=== PATIENT | male | born 1990 | race African-American/Black ===

== ENCOUNTER 2016-06-06 11:22 | Emergency (ER) | payer SELFPAY ==
[~2016-06-06] VITALS: Ht 175.3 cm; Wt 80.0 kg
[~2016-06-06 11:22] MED LIST: IBUP800T23 PO; Z.0.NO CURRENT MEDS
[2016-06-06 11:24] VITALS: BP 135/81; PULSE 75; RESP 12; TEMP 97.9; O2SAT 100
[2016-06-06] MEDS ORDERED: SODIUM CHLORIDE 0.9% FLUSH 5 ML FLUSH IVF PRN (12:45)
--- NOTE | 2016-06-06 12:47 | PD ---
HPI Chief Complaint: GI Complaint Time Seen by Provider: 12:43 Travel History International Travel<30 days: No Contact w/Intl Traveler<30days: No Traveled to known affect area: No History of Present Illness HPI Patient is a 25-year-old male presenting to the emergency department for evaluation of sore throat cough, fevers which are subjective, vomiting, abdominal pain. Patient states his pain is more so in the epigastric region, he rates it as 7 out of 10 and describes as crampy. Patient states he has not eaten anything yesterday or today. He vomited last night as well as this morning. Additionally he reports generalized body aches. Patient has not taken any ibuprofen, Tylenol, naproxen this morning. He states his past medical history is significant for asthma. He was recently released from group home in April. [facility] Past Medical History Asthma: Yes Diminished Hearing: No Immunizations Current: Yes Past Surgical History Surgical History: No Previous Surgery Social History Alcohol Use: No Tobacco Use: Yes (04/03 PPD) Substance Use: No Allergies-Medications (Allergen,Severity, Reaction): Coded Allergies: Bees (Verified Allergy, Severe, 11/15/12) Reported Meds & Prescriptions Reported Meds & Active Scripts Active Amoxicillin 875 Mg Tab 875 Mg PO BID 10 Days Zofran Odt (Ondansetron Odt) 4 Mg Tab 4 Mg SL Q6HR PRN Review of Systems Except as stated in HPI: all other systems reviewed are Neg General / Constitutional: Positive: Fever (subjective), Chills HENT: Positive: Sore Throat Respiratory: Positive: Cough, No: Wheezing Gastrointestinal: Positive: Nausea, Vomiting, Abdominal Pain Genitourinary: No: Dysuria Musculoskeletal: Positive: Myalgias, Arthralgias Neurologic: No: Focal Abnormalities Physical Exam Narrative GENERAL: Developed, well nourished, female. Resting comfortably in no acute distress. SKIN: Warm and dry. HEAD: Atraumatic. Normocephalic. EYES: Pupils equal and round. No scleral icterus. No injection or drainage. ENT: No nasal bleeding or discharge. Mucous membranes pink and moist. NECK: Trachea midline. No JVD. CARDIOVASCULAR: Regular rate and rhythm. No murmur appreciated. RESPIRATORY: No accessory muscle use. Clear to auscultation. Breath sounds equal bilaterally. GASTROINTESTINAL: Abdomen soft, mildly tender to palpation in epigastric region , nondistended. Hepatic and splenic margins not palpable. Has a bowel sounds, no rebound, slight guarding. MUSCULOSKELETAL: No obvious deformities. No clubbing. No cyanosis. No edema. NEUROLOGICAL: Awake and alert. No obvious cranial nerve deficits. Motor grossly within normal limits. Normal speech. PSYCHIATRIC: Appropriate mood and affect; insight and judgment normal. Data Data Last Documented VS Vital Signs Date Time Temp Pulse Resp B/P Pulse Ox O2 Delivery O2 Flow Rate FiO2 06/06/16 17:47 15 06/06/16 17:00 69 128/73 100 06/06/16 11:24 97.9 Orders Complete Blood Count With Diff (06/06/16 12:41) Comprehensive Metabolic Panel (06/06/16 12:41) Urinalysis - C+S If Indicated (06/06/16 12:41) Lipase (06/06/16 12:41) Sodium Chloride 0.9% Flush (Ns Flush) (06/06/16 12:45) Abdomen, Kub Only (06/06/16 12:41) Group A Rapid Strep Screen (06/06/16 12:41) Influenzae A/B Antigen (06/06/16 12:43) Ondansetron Inj (Zofran Inj) (06/06/16 17:00) Pantoprazole Inj (Protonix Inj) (06/06/16 17:00) Sodium Chlor 0.9% 1000 Ml Inj (Ns 1000 M (06/06/16 16:52) Al-Mag Hy-Si 40-40-4 Mg/Ml Liq (Mag-Al P (06/06/16 17:00) Lidocaine 2% Viscous (Xylocaine 2% Visco (06/06/16 17:00) Ketorolac Inj (Toradol Inj) (06/06/16 17:00) Labs Laboratory Tests Test 06/06/16 06/06/16 06/06/16 12:45 13:00 16:53 White Blood Count 11.5 TH/MM3 Red Blood Count 5.00 MIL/MM3 Hemoglobin 15.5 GM/DL Hematocrit 45.4 % Mean Corpuscular Volume 90.9 FL Mean Corpuscular Hemoglobin 31.0 PG Mean Corpuscular Hemoglobin 34.1 % Concent Red Cell Distribution Width 14.5 % Platelet Count 182 TH/MM3 Mean Platelet Volume 9.2 FL Neutrophils (%) (Auto) 81.3 % Lymphocytes (%) (Auto) 8.6 % Monocytes (%) (Auto) 8.6 % Eosinophils (%) (Auto) 0.9 % Basophils (%) (Auto) 0.6 % Neutrophils # (Auto) 9.4 TH/MM3 Lymphocytes # (Auto) 1.0 TH/MM3 Monocytes # (Auto) 1.0 TH/MM3 Eosinophils # (Auto) 0.1 TH/MM3 Basophils # (Auto) 0.1 TH/MM3 CBC Comment DIFF FINAL Differential Comment Sodium Level 139 MEQ/L Potassium Level 4.7 MEQ/L Chloride Level 102 MEQ/L Carbon Dioxide Level 26.8 MEQ/L Anion Gap 10 MEQ/L Blood Urea Nitrogen 10 MG/DL Creatinine 1.15 MG/DL Estimat Glomerular Filtration 95 ML/MIN Rate Random Glucose 73 MG/DL Calcium Level 9.7 MG/DL Total Bilirubin 0.4 MG/DL Aspartate Amino Transf 28 U/L (AST/SGOT) Alanine Aminotransferase 43 U/L (ALT/SGPT) Alkaline Phosphatase 90 U/L Total Protein 8.6 GM/DL Albumin 4.4 GM/DL Lipase 65 U/L Urine Color YELLOW Urine Turbidity CLEAR Urine pH 6.0 Urine Specific [place] 1.014 Urine Protein NEG mg/dL Urine Glucose (UA) NEG mg/dL Urine Ketones NEG mg/dL Urine Occult Blood NEG Urine Nitrite NEG Urine Bilirubin NEG Urine Urobilinogen LESS THAN 2.0 MG/DL Urine Leukocyte Esterase NEG Urine RBC 1 /hpf Urine WBC LESS THAN 1 /hpf Urine Mucus FEW /lpf Microscopic Urinalysis Comment CULT NOT INDICATED MDM Medical Decision Making Medical Screen Exam Complete: Yes Emergency Medical Condition: Yes Interpretation(s) Vital Signs Date Time Temp Pulse Resp B/P Pulse Ox O2 Delivery O2 Flow Rate FiO2 06/06/16 11:24 97.9 75 12 135/81 100 Differential Diagnosis Influenza versus strep versus gastroenteritis versus foodborne illness versus obstruction versus other Narrative Course Patient is a 25-year-old male who is well-appearing presenting to the emergency department with complaint of sore throat, cough, nausea vomiting, decreased oral intake for the last 2 days. He reports subjective fevers but is currently afebrile. He denies any posttussive emesis, but has vomited twice. Labs and imaging ordered and pending. Workup initiated in triage, care patient will be transferred to provider when a medical bed is available. Scripts Amoxicillin 875 Mg [id number] Mg PO BID 10 Days Ref 0 Prov:Ivania Rodgers DO 06/06/16 Ondansetron Odt (Zofran Odt)4 Mg Tab4 Mg SL Q6HR PRN (Nausea/Vomiting) #30 TAB Ref 0 Prov:Ivania Rodgers DO 06/06/16 Sandra Whiteside Jun 06, 2016 12:47
--- NOTE | 2016-06-06 13:07 | RADRPT ---
EXAM DATE/TIME: 06/06/2016 13:03 [place] COMPARISON: No previous studies available for comparison. INDICATIONS : Patient has been spitting up blood and had abdomen pain for two days. MEDICAL HISTORY : None. SURGICAL HISTORY : None. ENCOUNTER: Initial ACUITY: 2 days PAIN SCORE: 8/10 LOCATION: Abdomen. FINDINGS: Single frontal supine view of the abdomen demonstrates air within small and large bowel in a nonobstr uctive pattern. No organomegaly or abnormal calcifications are seen. No abnormal mass effect is appre ciated. The visualized bones demonstrates no abnormality. CONCLUSION: No acute abdominal abnormality is identified. Nathaniel Schneider MD on June 06, 2016 at 13:05 Board Certified Radiologist. This report was verified electronically.
[2016-06-06 13:14] LABS: AUTOMATED NEUTROPHIL # 9.4 TH/MM3 (1.8-7.7); BASOPHIL # 0.1 TH/MM3 (0-0.2); BASOPHIL % 0.6 % (0.0-2.0); EOSINOPHIL # 0.1 TH/MM3 (0-0.4); EOSINOPHIL % 0.9 % (0.0-4.0); HEMATOCRIT 45.4 % (39.0-51.0); HEMO FLAGS DIFF FINAL; LYMPH % 8.6 % (9.0-44.0); MEAN CELL VOLUME 90.9 FL (80.0-100.0); MEAN CORPUSCULAR HGB CONC 34.1 % (32.0-36.0); MONO % 8.6 % (0.0-8.0); NEUT % 81.3 % (16.0-70.0); PLATELET COUNT 182 TH/MM3 (150-450); RED CELL DISTRIBUTION WIDTH 14.5 % (11.6-17.2); WHITE BLOOD COUNT 11.5 TH/MM3 (4.0-11.0)
[2016-06-06 13:39] LABS: ALKALINE PHOSPHATASE 90 U/L (45-117); TOTAL BILIRUBIN ADULT 0.4 MG/DL (0.2-1.0)
[2016-06-06 13:40] LABS: ALT (GPT) 43 U/L (12-78); ANION GAP 10 MEQ/L (5-15); AST (GOT) 28 U/L (15-37); BICARBONATE 26.8 MEQ/L (21.0-32.0); BLOOD UREA NITROGEN 10 MG/DL (7-18); CHLORIDE 102 MEQ/L (98-107); GLOMERULAR FILTRATION RATE 95 ML/MIN (>89); POTASSIUM 4.7 MEQ/L (3.5-5.1); SODIUM (NA) 139 MEQ/L (136-145)
[2016-06-06] MEDS ORDERED: SODIUM CHLOR 0.9% 1000 ML INJ 1,000 ML IV SCH (16:52)
[2016-06-06] MEDS ORDERED: ZOFR4TAB3 SL ×2 (16:54→17:49)
[2016-06-06] MEDS ORDERED: AMOX875T PO ×2 (16:54→17:49)
[2016-06-06 17:00] VITALS: BP 128/73; PULSE 69; RESP 15; O2SAT 100
[2016-06-06] MEDS ORDERED: ONDANSETRON HCL 4 MG/2 ML VIAL IVP ONE (17:00)
[2016-06-06] MEDS ORDERED: LIDOCAINE VISCOUS 2% SOLN 15 ML UDC PO ONE (17:00)
[2016-06-06] MEDS ORDERED: KETOROLAC TROMETHAMINE 30 MG/ML (IVP) VIAL IV PUSH ONE (17:00)
[2016-06-06] MEDS ORDERED: PANTOPRAZOLE SODIUM 40 MG VIAL IVP ONE (17:00)
[2016-06-06] MEDS ORDERED: ALUMINUM/MAGNESIUM/SIMETH 30 ML CUP PO ONE (17:00)
--- NOTE | 2016-06-06 17:01 | PD ---
HPI Chief Complaint: GI Complaint Time Seen by Provider: 16:48 Travel History International Travel<30 days: No Contact w/Intl Traveler<30days: No Traveled to known affect area: No History of Present Illness HPI 25-year-old male presents for evaluation of sore throat. Symptoms started 2 days ago. Associated with myalgias, nausea, vomiting, epigastric discomfort. Pain is worsened swallowing. No alleviating factors. He has not checked his temperature at home. Denies dysuria, flank pain, rash, congestion, shortness of breath, sick contacts. No significant past medical history. No other complaints. [facility] Past Medical History Asthma: Yes Diminished Hearing: No Immunizations Current: Yes Past Surgical History Surgical History: No Previous Surgery Social History Alcohol Use: No Tobacco Use: Yes (1/2 PPD) Substance Use: No Allergies-Medications (Allergen,Severity, Reaction): Coded Allergies: Bees (Verified Allergy, Severe, 11/15/12) Reported Meds & Prescriptions Reported Meds & Active Scripts Active No Active Prescriptions or Reported Medications Review of Systems Except as stated in HPI: all other systems reviewed are Neg Physical Exam Narrative GENERAL: Well-developed well-nourished male in no acute distress SKIN: Warm and dry. HEAD: Atraumatic. Normocephalic. EYES: Pupils equal and round. No scleral icterus. No injection or drainage. ENT: No nasal bleeding or discharge. Mucous membranes pink and moist. Oropharyngeal erythema is present. No exudate. Uvula midline with no mass effect. NECK: Trachea midline. No JVD. CARDIOVASCULAR: Regular rate and rhythm. No murmur appreciated. RESPIRATORY: No accessory muscle use. Clear to auscultation. Breath sounds equal bilaterally. GASTROINTESTINAL: Abdomen soft, mild epigastric and left upper quadrant tenderness without guarding. MUSCULOSKELETAL: No obvious deformities. No edema. NEUROLOGICAL: Awake and alert. No obvious cranial nerve deficits. Motor grossly within normal limits. Normal speech. PSYCHIATRIC: Appropriate mood and affect; insight and judgment normal. Data Data Last Documented VS Vital Signs Date Time Temp Pulse Resp B/P Pulse Ox O2 Delivery O2 Flow Rate FiO2 06/06/16 17:47 15 06/06/16 17:00 69 128/73 100 06/06/16 11:24 97.9 Orders Complete Blood Count With Diff (06/06/16 12:41) Comprehensive Metabolic Panel (06/06/16 12:41) Urinalysis - C+S If Indicated (06/06/16 12:41) Lipase (06/06/16 12:41) Sodium Chloride 0.9% Flush (Ns Flush) (06/06/16 12:45) Abdomen, Kub Only (06/06/16 12:41) Group A Rapid Strep Screen (06/06/16 12:41) Influenzae A/B Antigen (06/06/16 12:43) Ondansetron Inj (Zofran Inj) (06/06/16 17:00) Pantoprazole Inj (Protonix Inj) (06/06/16 17:00) Sodium Chlor 0.9% 1000 Ml Inj (Ns 1000 M (06/06/16 16:52) Al-Mag Hy-Si 40-40-4 Mg/Ml Liq (Mag-Al P (06/06/16 17:00) Lidocaine 2% Viscous (Xylocaine 2% Visco (06/06/16 17:00) Ketorolac Inj (Toradol Inj) (06/06/16 17:00) Labs Laboratory Tests Test 06/06/16 06/06/16 06/06/16 12:45 13:00 16:53 White Blood Count 11.5 TH/MM3 Red Blood Count 5.00 MIL/MM3 Hemoglobin 15.5 GM/DL Hematocrit 45.4 % Mean Corpuscular Volume 90.9 FL Mean Corpuscular Hemoglobin 31.0 PG Mean Corpuscular Hemoglobin 34.1 % Concent Red Cell Distribution Width 14.5 % Platelet Count 182 TH/MM3 Mean Platelet Volume 9.2 FL Neutrophils (%) (Auto) 81.3 % Lymphocytes (%) (Auto) 8.6 % Monocytes (%) (Auto) 8.6 % Eosinophils (%) (Auto) 0.9 % Basophils (%) (Auto) 0.6 % Neutrophils # (Auto) 9.4 TH/MM3 Lymphocytes # (Auto) 1.0 TH/MM3 Monocytes # (Auto) 1.0 TH/MM3 Eosinophils # (Auto) 0.1 TH/MM3 Basophils # (Auto) 0.1 TH/MM3 CBC Comment DIFF FINAL Differential Comment Sodium Level 139 MEQ/L Potassium Level 4.7 MEQ/L Chloride Level 102 MEQ/L Carbon Dioxide Level 26.8 MEQ/L Anion Gap 10 MEQ/L Blood Urea Nitrogen 10 MG/DL Creatinine 1.15 MG/DL Estimat Glomerular Filtration 95 ML/MIN Rate Random Glucose 73 MG/DL Calcium Level 9.7 MG/DL Total Bilirubin 0.4 MG/DL Aspartate Amino Transf 28 U/L (AST/SGOT) Alanine Aminotransferase 43 U/L (ALT/SGPT) Alkaline Phosphatase 90 U/L Total Protein 8.6 GM/DL Albumin 4.4 GM/DL Lipase 65 U/L Urine Color YELLOW Urine Turbidity CLEAR Urine pH 6.0 Urine Specific [place] 1.014 Urine Protein NEG mg/dL Urine Glucose (UA) NEG mg/dL Urine Ketones NEG mg/dL Urine Occult Blood NEG Urine Nitrite NEG Urine Bilirubin NEG Urine Urobilinogen LESS THAN 2.0 MG/DL Urine Leukocyte Esterase NEG Urine RBC 1 /hpf Urine WBC LESS THAN 1 /hpf Urine Mucus FEW /lpf Microscopic Urinalysis Comment CULT NOT INDICATED MDM Medical Decision Making Medical Screen Exam Complete: Yes Emergency Medical Condition: Yes Medical Record Reviewed: Yes Differential Diagnosis Streptococcal pharyngitis, gastritis, pancreatitis, cholecystitis, dehydration Narrative Course 25-year-old male with sore throat, nausea and vomiting, epigastric pain for 2 days. Rapid strep screen is positive. Other lab work is unremarkable and reassuring. The patient was given IV fluids, Protonix, Magic mouthwash, oral amoxicillin, IV Zofran. He will be discharged with prescriptions for Zofran and amoxicillin. Diagnosis Primary Impression: Streptococcal pharyngitis Additional Instructions: Medication as prescribed. Stay well hydrated well-nourished. Take Tylenol or Motrin for discomfort. Follow-up with primary care physician as needed. Return for any emergent medical conditions. Med/Other Pt SpecificInfo: Prescription(s) given Scripts Amoxicillin 875 Mg [id number] Mg PO BID 10 Days Ref 0 Prov:Ana MariaIvania 06/06/16 Ondansetron Odt (Zofran Odt)4 Mg Tab4 Mg SL Q6HR PRN (Nausea/Vomiting) #30 TAB Ref 0 Prov:Ana MariaIvania 06/06/16 Disposition: 01 DISCHARGE HOME Condition: Stable aGbe Sequeira Jun 06, 2016 17:01
[2016-06-06 17:22] LABS: BLOOD, URINE NEG (NEG); GLUCOSE,URINE NEG (NEG); KETONE, URINE NEG (NEG); MUCUS URINE FEW /lpf (OCC); NITRITE,URINE NEG (NEG); URINE COLOR YELLOW (YELLW/STRAW)
[2016-06-06 17:23] LABS: COMMENT (UR) CULT NOT INDICATED; CULTURE IF INDICATED CULT NOT INDICATED
[2016-06-06 17:47] VITALS: RESP 15
== END 2016-06-06 18:28 | disposition home or self-care (01) ==
LOC: NEPE 11:22 → NETRI 11:22 → NEPE 18:28
DX: J02.0 Streptococcal pharyngitis (principal); B95.0 Streptococcus, group A, as the cause of diseases classified elsewhere; R11.2 Nausea with vomiting, unspecified; R05 Cough; J45.909 Unspecified asthma, uncomplicated; F17.210 Nicotine dependence, cigarettes, uncomplicated
CPT/HCPCS: 74000; 80053; 81001; 83690; 85025; 87804; 87880; 96361; 96374; 96375; 99284; C9113; J1885; J2405; J7030

== ENCOUNTER 2016-10-16 02:16 | Emergency (ER) | payer SELFPAY ==
[~2016-10-16 02:16] MED LIST changes: +AMOX875T PO; -IBUP800T23 PO; -Z.0.NO CURRENT MEDS; +ZOFR4TAB3 SL
[2016-10-16 02:17] VITALS: BP 139/88; PULSE 73; RESP 16; TEMP 97.9; O2SAT 99
== END 2016-10-16 02:45 | disposition left against medical advice (07) ==
LOC: NED 02:16
DX: M62.838 Other muscle spasm (principal)
CPT/HCPCS: 99281

== ENCOUNTER 2016-12-07 20:39 | Emergency (ER) | payer OTHER ==
[2016-12-07 20:40] VITALS: BP 145/84; PULSE 79; RESP 15; TEMP 97.9; O2SAT 98
== END 2016-12-07 22:25 | disposition left against medical advice (07) ==
LOC: NED 20:39
DX: Z04.1 Encounter for examination and observation following transport accident (principal)
CPT/HCPCS: 99281